=== PATIENT | female | born 1990 | race Caucasian/White ===

== ENCOUNTER 2016-12-07 19:24 | Emergency (ER) | payer BC ==
[2016-12-07 19:32] VITALS: RESP 20
[2016-12-07 19:38] VITALS: TEMP 97.5
[2016-12-07] MEDS ORDERED: Lidocaine 1% 10 MG/ML - 20 ML VIAL SUBCUT ONE (19:38)
--- NOTE | 2016-12-07 19:42 | PDOC ---
Skin Rash/Insect/Abscess HPI - General Chief Complaint: Integumentary Stated Complaint: "CUT FINGER" Date Seen by Provider: 12/07/16 Time Seen by Provider: 19:38 Source: POSITIVE: Patient, Spouse Exam Limitations: POSITIVE: No limitations Nurse's Notes Reviewed & Considered: Yes - History of Present Illness Initial Comments: Patient attempting to seperate frozen hamburger patties with a knife, slipped and lac to L distal thumb, medial surface at the DIP joint. Denies other symptoms. Have you received a tetanus shot in the past 10 years?: Yes Body Location Affected: REPORTS: Upper Extremity (L) Timing: REPORTS: Abrupt Duration: 1/2 hour Severity: Moderate Quality: REPORTS: "Pain" Identified Causes: REPORTS: Yes When Exposed: REPORTS: Just Prior to Sx Onset Where Exposed: REPORTS: Home Suspected Etiology: REPORTS: Other (sharp knife) Similar Symptoms Previously: No Recent Care Received: REPORTS: Denies Any Prior Injuries Related to Current Complaint?: No - Patient Home Medications Home Medications: Home Medications Proair Hfa 2 puff INH Q4-6H PRN #2 inhaler 12/22/12 - Patient Allergies Allergies/Adverse Reactions: Allergies Allergy/AdvReac Type Severity Reaction Status Date / Time amoxicillin Allergy Unverified 01/26/16 11:59 Past Medical History - heen HEENT History: Denies History Cardiovascular History: Denies History Respiratory History: Denies History Gastrointestinal History: Denies History Genitourinary History: Denies History Endocrine History: Denies History Musculoskeletal History: Denies History Neurological History: Denies History Blood Disorders: Denies History Psychiatric History: Denies History Female Reproductive History: Denies History Cancer History: Denies History In Past Year Been Physically Harmed or Verbally Threatened: No History of MDRO: Yes Tobacco Use: Smoker Current Status Unknown Alcohol Use: Occasionally Type of alcohol normally used: Hard Liquor Substance Use Type: None Previous Surgical History: No Significant Family History: Asthma, Cancer, Diabetes ROS Constitution: REPORTS: Denies Symptoms Cardiovascular: REPORTS: Denies Cardiac Symptoms Respiratory: REPORTS: Denies Resp Symptoms Neurological: REPORTS: Denies Neuro Symptoms Gastrointestinal: REPORTS: Denies GI Symptoms Endocrine: REPORTS: Denies Symptoms Musculoskeletal: REPORTS: Denies MS Symptoms Genitourinary: REPORTS: Denies Symptoms Eyes: REPORTS: Denies Symptoms ENT: REPORTS: Denies Symptoms Skin: REPORTS: Other (Laceration to L distal thumb.) Lympathic: REPORTS: Denies Lympathic Symptoms Immunologic: POSITIVE: Denies Symptoms Psychiatric: POSITIVE: Denies Psych Symptoms Skin Rash/Insect/Abscess Exam - General Appearance General Appearance: REPORTS: Alert, Cooperative, No Acute Distress - Skin Skin: REPORTS: Warm, Dry, Normal Color, Other (2 cm lac) Skin Location: REPORTS: Extremities Skin Character: REPORTS: Symmetric - Extremities Extremity: Non-Tender: (All Extremities), Normal ROM: (All Extremities), Normal Inspection: (All Extremities), Pelvis Stable: (All Extremities) Procedures - Laceration/Wound Repair Did patient have a laceration repair: Yes Site of Laceration/Wound: Distal L medial thumb. 2 cm linear laceration Wound Length (cm): 2 Wound's Depth, Shape: Into subcutaneous tissue Time of Suture Placement:: 20:07 Distal CMS: Yes Skin Prep: Betadine Prep Local Anesthesia Used - Indicate Amt Used in Comment: Lidocaine 1%: Yes Wound Explored: Clean Wound Debrided: Minimal Wound Repaired With: Sutures single layer Suture Size/Type: 5:0, Prolene Number of Sutures: 3 Layer Closure?: No Drain Placement: No Sterile Dressing Applied?: Yes Splint Applied?: No Sling Applied?: No Procedure Note:: After obtaining informed verbal consent, patient had her hand soaked in Betadine tea, a ring block was performed with 1% plain lidocaine at the base of her thumb which resulted in excellent anesthesia. Using 5-0 Prolene 3 interrupted sutures were placed without difficulty with excellent skin edge reapproximation and good hemostasis. Patient had her wound dressed with a sterile dressing. She receives instructions in wound care, and instructions to return in 10 days for suture removal. Skin Rash/Abscess Progress - Patient's Progress Status: POSITIVE: Improved MDM / ED Course: Patient examined, hand soaked in a betadine tea, 1% plain lidocaine used to anesth the laceration. For procedure see dictation above. ASSESSMENT: 2cm laceration to distal L medial thumb. PLAN: D/C home, sutures out in 10 days. Keep wound clean and dry. - Consult Counseled: POSITIVE: Patient, Family, RE: DX, RE: Need for F/U Patient Care Time - Estimated PCT Patient Care Time (In Minutes): 30 Vital Signs - Recent Vital Signs Vital Signs: Vital Signs (Last 8 hours) Temp Pulse Resp BP Pulse Ox 12/07/16 19:33 97.5 F 83 20 136/89 95 12/07/16 19:31 98.7 F 20 136/89 95 - VS Reviewed Vital Signs Reviewed: Yes Discharge Clinical Impression: Laceration Discharge Disposition: Discharged to Home Condition: Good Patient Instructions Given at Discharge: Care For Your Stitches (ED), Laceration (ED) Follow Up With: ILA REY RN [REGISTERED NURSE] -
[2016-12-07] MEDS ORDERED: Bacitracin Oint 14.2 gm tube 14 APPLIC/14.2 GM TUBE TOPICAL ONE (20:06)
== END 2016-12-07 20:40 | disposition home or self-care (01) ==
LOC: ER 19:24
DX: S61.012A Laceration without foreign body of left thumb without damage to nail, initial encounter (principal); W26.0XXA Contact with knife, initial encounter
CPT/HCPCS: 12001; 99282